=== PATIENT | female | born 1965 | race Caucasian/White ===

== ENCOUNTER 2023-07-21 16:00 | Outpatient (CLI) | payer OTHER ==
[2023-07-21 21:22] LABS: BASOPHILS # (AUTO) 0.1 10^3/uL (0.0-0.1); BASOPHILS % (AUTO) 0.7 %; EOSINOPHILS # (AUTO) 0.1 10^3/uL (0.0-0.7); EOSINOPHILS % (AUTO) 1.9 %; HCT - HEMATOCRIT 43.4 % (37.0-47.0); HGB - HEMOGLOBIN 13.7 g/dL (12.0-16.0); LYMPHOCYTES % (AUTO) 40.3 %; MEAN CORPUSCULAR HGB CONC 31.6 g/dL (32.0-36.0); MEAN CORPUSCULAR VOLUME 95.2 fL (81.0-99.0); MEAN PLATELET VOLUME 10.4 fL (7.9-10.8); MONOCYTES # (AUTO) 0.5 10^3/uL (0.0-1.0); MONOCYTES % (AUTO) 6.4 %; NEUTROPHILS # (AUTO) 3.7 10^3/uL (1.5-6.6); NEUTROPHILS % (AUTO) 50.4 %; PLT - PLATELET COUNT 318 10^3/uL (130-450); RED BLOOD COUNT 4.56 10^6/uL (4.20-5.40); WHITE BLOOD COUNT 7.4 x10^3/uL (4.8-10.8)
[2023-07-21 21:27] LABS: CALCIUM 9.6 mg/dL (8.5-10.3); CREATININE 0.8 mg/dL (0.6-1.3); POTASSIUM 4.5 mmol/L (3.5-4.5)
[2023-07-21 21:43] LABS: THYROID STIMULATING HORMONE 2.61 uIU/mL (0.34-5.60)
== END 2023-07-21 16:15 | disposition home or self-care (01) ==
LOC: LAB.N 16:00
PROVIDERS: ATTEND Physician Assistant Medical
DX: R20.2 Paresthesia of skin (principal)
CPT/HCPCS: 36415; 80048; 82607; 84443; 85025

== ENCOUNTER 2023-07-21 19:11 | Outpatient (CLI) | payer OTHER ==
--- NOTE | 2023-07-22 11:30 | XRAY Report ---
PROCEDURE: Shoulder 3 View RT INDICATIONS: PARATHESIA OF ARM TECHNIQUE: 3 views of the shoulder were acquired. COMPARISON: None. FINDINGS: Bones: No fractures or dislocations. Degenerative changes of the acromioclavicular joint of the righ t shoulder. No suspicious bony lesions. Visualized ribs appear intact. Soft tissues: No suspicious soft tissue calcifications. The visualized lungs are within normal limi ts. IMPRESSION: 1. No acute abnormality. 2. Degenerative changes of the acromioclavicular joint. Reviewed by: Ladarius Ann on 07/22/2023 11:28 AM [facility] Approved by: Ladarius Ann on 07/22/2023 11:28 AM [facility] Station ID: [id number]
--- NOTE | 2023-07-22 11:48 | XRAY Report ---
PROCEDURE: Cervical Spine 2 View INDICATIONS: PARATHESIA OF ARM TECHNIQUE: 3 view(s) of the cervical spine were acquired. COMPARISON: None. FINDINGS: Bones: No fractures or dislocations to the T1 level. C5-6, C6-7, and C7-T1 demonstrate disc space n arrowing and anterior osteophytes. There is kyphosis of the mid cervical spine. The lateral masses of C1 appear intact on the odontoid view. No suspicious bony lesions. Soft tissues: No prevertebral soft tissue swelling. IMPRESSION: 1. Multilevel degenerative disc disease as detailed above. 2. Kyphosis of the mid cervical spine with loss of the normal cervical lordosis. Reviewed by: Ladarius Ann on 07/22/2023 11:46 AM [facility] Approved by: Ladarius Ann on 07/22/2023 11:46 AM [facility] Station ID: [id number]
== END 2023-07-21 19:12 | disposition home or self-care (01) ==
LOC: DI 19:11
PROVIDERS: ATTEND Physician Assistant Medical
DX: R20.2 Paresthesia of skin (principal); M19.011 Primary osteoarthritis, right shoulder; M50.322 Other cervical disc degeneration at C5-C6 level; M40.202 Unspecified kyphosis, cervical region
CPT/HCPCS: 36415; 80048; 82607; 84443; 85025